=== PATIENT | female | born 1950 | race Caucasian/White ===

== ENCOUNTER 2018-12-07 11:17 | Outpatient (REF) | payer MEDICARE, SELFPAY ==
[2018-12-09 10:24] LABS: CEA 1.5 ng/ml
[2018-12-09 11:19] LABS: CA 125 7 U/mL (0-30)
== END 2018-12-07 11:37 ==
LOC: NCHCN 11:17
PROVIDERS: PCP Family Medicine; Visit Provider Registered Nurse
DX: C56.9 Malignant neoplasm of unspecified ovary (principal); R35.0 Frequency of micturition
CPT/HCPCS: 80061; 83721; 86304; 86706; 86803; 87077; 82378; 87086; 87186

== ENCOUNTER 2018-12-29 09:31 | Outpatient (REF) | payer MEDICARE, SELFPAY ==
[2018-12-29 21:35] LABS: Anion Gap 8.6 mmol/L (3-11); BUN 20 mg/dL (7-18); CO2 27.4 mmol/L (21.0-32.0); CREATININE 0.86 mg/dL (0.55-1.02); Calcium 10.1 mg/dL (8.5-10.1); Chloride 103 mmol/L (98-107); Glucose 112 mg/dL (70-100); Potassium 4.5 mmol/L (3.5-5.1); Sodium 139 mmol/L (136-145)
== END 2018-12-29 09:51 ==
LOC: NCHCN 09:31
PROVIDERS: PCP Family Medicine; Visit Provider Registered Nurse
DX: I10 Essential (primary) hypertension (principal); E03.9 Hypothyroidism, unspecified
CPT/HCPCS: 80048

== ENCOUNTER 2019-01-15 12:17 | Outpatient (REF) | payer MEDICARE, SELFPAY | END 2019-01-15 12:37 | LOC: NCHCN 12:17 | PROVIDERS: PCP Family Medicine; Visit Provider Registered Nurse | DX: R35.0 Frequency of micturition (principal) | CPT/HCPCS: 87077; 87086; 87186 ==

== ENCOUNTER 2019-12-08 19:19 | Outpatient (REF) | payer MEDICARE, SELFPAY ==
[2019-12-08 20:26] LABS: Anion Gap 12.2 mmol/L (3-11); BUN 17 mg/dL (7-18); CO2 25.8 mmol/L (21.0-32.0); CREATININE 0.74 mg/dL (0.55-1.02); Calcium 10.3 mg/dL (8.5-10.1); Calculated LDL 139 mg/dL (<100); Chloride 100 mmol/L (98-107); Cholesterol 221 mg/dL (<200); Glucose 92 mg/dL (74-106); HDL Cholesterol 68 mg/dL (40-60); Potassium 4.3 mmol/L (3.5-5.1); Sodium 138 mmol/L (136-145); Triglyceride 72 mg/dL (<150)
[2019-12-08 20:31] LABS: Hemoglobin A1C 5.9 % (3.8-5.6)
[2019-12-09 17:41] LABS: CEA 1.2 ng/mL (See Note)
[2019-12-10 10:17] LABS: CA 125 8 U/mL (<30)
== END 2019-12-08 19:39 ==
LOC: NCHCN 19:19
PROVIDERS: Obstetrics & Gynecology Gynecologic Oncology; PCP Family Medicine; Visit Provider Registered Nurse
DX: C56.9 Malignant neoplasm of unspecified ovary (principal); R73.03 Prediabetes; I10 Essential (primary) hypertension; Z13.6 Encounter for screening for cardiovascular disorders
CPT/HCPCS: 80048; 80061; 86304; 82378; 83036